=== PATIENT | female | born 1960 ===

== ENCOUNTER 2019-03-21 08:29 | Inpatient (IN) | payer OTHER ==
[~2019-03-21] VITALS: Ht 162.6 cm; Wt 61.2 kg
[2019-03-21] MEDS ORDERED: LEVO-T88 MCG PO (10:11)
[2019-03-24] MEDS ORDERED: LEVO-T75 MCG PO (09:14)
[2019-03-25] MEDS ORDERED: CODE1TAB37 PO (09:05)
[2019-03-25] MEDS ORDERED: NAPR500T14 PO (09:05)
== END 2019-03-25 09:26 | disposition home or self-care (01) | DRG 743 ==
LOC: OB/GYN 03-24 05:20 → O/R 03-24 05:20 → SURH 03-24 08:45 → OB/GYN 03-24 11:21
PROVIDERS: ADMIT Obstetrics & Gynecology
PROC: 0UT27ZZ Resection of Bilateral Ovaries, Via Natural or Artificial Opening (ICD-10-PCS; 2019-03-24)
PROC: 0UQF7ZZ Repair Cul-de-sac, Via Natural or Artificial Opening (ICD-10-PCS; 2019-03-24)
PROC: 0USG7ZZ Reposition Vagina, Via Natural or Artificial Opening (ICD-10-PCS; 2019-03-24)
PROC: 0UT97ZZ Resection of Uterus, Via Natural or Artificial Opening (ICD-10-PCS; principal; 2019-03-24 10:30)
PROC: 0UT77ZZ Resection of Bilateral Fallopian Tubes, Via Natural or Artificial Opening (ICD-10-PCS; 2019-03-24 10:30)
DX: D25.1 Intramural leiomyoma of uterus (principal); D25.2 Subserosal leiomyoma of uterus; N84.0 Polyp of corpus uteri; N95.0 Postmenopausal bleeding; N72 Inflammatory disease of cervix uteri; N81.11 Cystocele, midline; N81.5 Vaginal enterocele